=== PATIENT | male | born 1955 | race Caucasian/White ===

== ENCOUNTER 2017-10-03 07:30 | Inpatient (IN) | payer BC ==
[~2017-10-03] VITALS: Ht 180.3 cm; Wt 145.1 kg
[2017-10-24] MEDS ORDERED: HYDR25TA4 PO (07:16)
[2017-10-24] MEDS ORDERED: ASPI-1153 PO (07:16)
[2017-10-24] MEDS ORDERED: LORA10TA7 PO (07:16)
[2017-10-24] MEDS ORDERED: LISI10TA5 PO (07:16)
[2017-10-24] MEDS ORDERED: ONDANSETRON HCL 4 MG/2 ML VIAL IVP PRN (11:00)
[2017-10-24] MEDS ORDERED: CEFAZOLIN 2 GM IVPB PREMIX 50 ML IV ONE (11:20)
[2017-10-24] MEDS ORDERED: PROPOFOL 200MG/ 20ML VIAL (DIPRIVAN) IV ONE (11:20)
[2017-10-24] MEDS ORDERED: BACITRACIN 1 GM OINT TP ONE (11:20)
[2017-10-24] MEDS ORDERED: SEVOFLURANE 15 MIN GAS INH ONE (11:20)
[2017-10-24] MEDS ORDERED: fentaNYL CITRATE 250 MCG/5 ML AMP ONE (11:20)
[2017-10-24] MEDS ORDERED: MIDAZOLAM HCL 5 MG/ML VIAL (VERSED) IV ONE (11:20)
[2017-10-24] MEDS ORDERED: SUCCINYLCHOLINE CHLORIDE 20 MG/ML(QUELICIN) ONE (11:20)
[2017-10-24] MEDS ORDERED: ePHEDrine sulfate 50 MG/ML VIAL ONE (11:20)
[2017-10-24] MEDS ORDERED: ONDANSETRON HCL 4 MG/2 ML VIAL ONE (11:20)
[2017-10-24] MEDS ORDERED: NS IRRIG SOLN 1000 ML IR ONE (11:20)
[2017-10-24] MEDS ORDERED: LIDOCAINE/EPI 1% 1:100000 20 ML VIAL INJ ONE (11:20)
[2017-10-24] MEDS ORDERED: LR 1,000 ML IV.SOLN IV ONE (11:20)
[2017-10-24] MEDS ORDERED: LR 1,000 ML IV SCH (11:42)
[2017-10-24] MEDS: MORPHINE 4 MG/ML INJ. SYRINGE IVP PRN ×2 (11:45→13:21)
[2017-10-24] MEDS ORDERED: METOCLOPRAMIDE HCL 10 MG/2 ML VIAL IVP PRN (11:45)
[2017-10-24] MEDS ORDERED: MORPHINE 4 MG/ML INJ. SYRINGE IVP PRN ×2 (11:45)
[2017-10-24] MEDS ORDERED: MORPHINE 2 MG/ML INJ. SYRINGE IVP ONE (11:45)
[2017-10-24] MEDS ORDERED: MORPHINE 4 MG/ML INJ. SYRINGE ONE (11:46)
[2017-10-24 12:44] VITALS: BP_SYST 142
[2017-10-24] MEDS ORDERED: NORMAL SALINE 5 ML DISP.SYRIN IVF SCH (14:00)
[2017-10-24] MEDS: NORMAL SALINE 5 ML DISP.SYRIN IVF SCH ×2 (14:00→21:18)
[2017-10-24] MEDS: HYDROcodone/ACETAMIN 5-325 MG TAB (NORCO/ VICODIN) PO PRN ×2 (16:21→21:11)
[2017-10-24 16:26] VITALS: BP_SYST 141
[2017-10-24 20:00] VITALS: BP_SYST 129
[2017-10-24] MEDS: DEXAMETHASONE SOD PHOSPHATE 4 MG/ML VIAL IVP SCH (21:13)
[2017-10-25 00:42] VITALS: BP_SYST 123
[2017-10-25] MEDS: HYDROcodone/ACETAMIN 5-325 MG TAB (NORCO/ VICODIN) PO PRN ×2 (02:53→07:35)
[2017-10-25] MEDS: DEXAMETHASONE SOD PHOSPHATE 4 MG/ML VIAL IVP SCH (05:44)
[2017-10-25] MEDS: NORMAL SALINE 5 ML DISP.SYRIN IVF SCH (05:45)
[2017-10-25 07:45] VITALS: BP_SYST 145
[2017-10-25 08:20] VITALS: BP_SYST 145
[2017-10-25] MEDS ORDERED: LISINOPRIL 10 MG TABLET (PRINIVIL) PO SCH (09:00)
[2017-10-25] MEDS ORDERED: HYDROCHLOROTHIAZIDE 25 MG TABLET (HCTZ) PO SCH (09:00)
== END 2017-10-25 09:20 | disposition home or self-care (01) | DRG 626 ==
LOC: SMU 10-24 06:09
PROVIDERS: ADMIT Otolaryngology Plastic Surgery within the Head & Neck; ATTEND Otolaryngology Plastic Surgery within the Head & Neck
PROC: 0GTH0ZZ Resection of Right Thyroid Gland Lobe, Open Approach (ICD-10-PCS; 2017-10-24)
PROC: 0GTJ0ZZ Resection of Thyroid Gland Isthmus, Open Approach (ICD-10-PCS; 2017-10-24)
PROC: 0GTG0ZZ Resection of Left Thyroid Gland Lobe, Open Approach (ICD-10-PCS; principal; 2017-10-24 07:30)
DX: C73 Malignant neoplasm of thyroid gland (principal); Z68.41 Body mass index [BMI] 40.0-44.9, adult; I10 Essential (primary) hypertension; E11.9 Type 2 diabetes mellitus without complications; E66.01 Morbid (severe) obesity due to excess calories; Z79.899 Other long term (current) drug therapy; Z80.8 Family history of malignant neoplasm of other organs or systems
CPT/HCPCS: 36415; 82310-TC; 87081; 88307; 88311; C1782; J0330; J0690; J1100; J2250; J2270; J2405; J2704; J3010; J7120